=== PATIENT | male | born 1965 | race Caucasian/White ===

== ENCOUNTER 2017-04-09 09:11 | Inpatient (IN) | payer MEDICAID ==
[2017-04-09] VITALS (10 sets, daily range): BP systolic 132–170; BP diastolic 70–98; PULSE 70–100; RESP 16–20; TEMP 97.6–97.8; O2SAT 98–99
[2017-04-09] MEDS ORDERED: NITROGLYCERIN 0.4 MG SL 25 TABS/BTL SL ONE (09:45)
[2017-04-09] MEDS ORDERED: SODIUM CHLORIDE 0.9% FLUSH 10 ML FLUSH IVF PRN (09:45)
--- NOTE | 2017-04-09 09:47 | PD ---
HPI Chief Complaint: Cardiac Complaint Time Seen by Provider: :31 Travel History International Travel<30 days: No Contact w/Intl Traveler<30days: No Traveled to known affect area: No History of Present Illness HPI 51-year-old male notes 1 month history of chest pressure that goes up into his throat when he moves. He states that he went to Dr. nazario's office and they advised him to come here for testing and admission. He states he was referred there by his primary care physician. He states that sometimes he also gets short of breath with exertion. He states no other concurrent complaints. He denies specific other modifying factors. He was given aspirin in the office prior to arrival. He is currently on no medications given his cholesterol is under control without it and is not needing other medications he states. PFSH Past Medical History Narrative Medical Mild chronic kidney disease, dyslipidemia, renal cancer status post nephrectomy Cancer: Yes Immunizations Current: Yes Past Surgical History Cholecystectomy: Yes Other Surgery: Yes (LEFT KIDNEY REMOVAL, FEMUR, HERNIA) Social History Alcohol Use: No Tobacco Use: No Substance Use: No Allergies-Medications (Allergen,Severity, Reaction): Coded Allergies: No Known Allergies (Unverified , 04/09/17) Reported Meds & Prescriptions Reported Meds & Active Scripts Active No Active Prescriptions or Reported Medications Review of Systems Except as stated in HPI: all other systems reviewed are Neg Physical Exam Narrative GENERAL: Well-nourished, well-developed patient. SKIN: Warm and dry. HEAD: Normocephalic and atraumatic. EYES: No injection or drainage. ENT: No nasal drainage noted. NECK: Supple, trachea midline. CARDIOVASCULAR: Regular rate and rhythm RESPIRATORY: Breath sounds equal bilaterally. No accessory muscle use. GASTROINTESTINAL: Abdomen soft, non-tender, nondistended. EXTREMITIES: No edema. NEUROLOGICAL: Awake and alert. Motor and sensory grossly within normal limits. Normal speech. Data Data Last Documented VS Vital Signs Date Time Temp Pulse Resp B/P Pulse Ox O2 Delivery O2 Flow Rate FiO2 04/09/17 09:35 99 Room Air 04/09/17 09:13 97.8 75 20 170/95 Orders Electrocardiogram (04/09/17 09:31) Ckmb (Isoenzyme) Profile (04/09/17 09:31) Complete Blood Count With Diff (04/09/17 09:31) Comprehensive Metabolic Panel (04/09/17 09:31) Magnesium (Mg) (04/09/17 09:31) Prothrombin Time / Inr (Pt) (04/09/17 09:31) Act Partial Throm Time (Ptt) (04/09/17 09:31) Troponin I (04/09/17 09:31) Chest, Single Ap (04/09/17 09:31) Ecg Monitoring (04/09/17 09:31) Bilateral Bp Monitoring (04/09/17 09:31) Iv Access Insert/Monitor (04/09/17 09:31) Oximetry (04/09/17 09:31) Sodium Chloride 0.9% Flush (Ns Flush) (04/09/17 09:45) Nitroglycerin Sl (Nitrostat Sl) (04/09/17 09:45) CKMB (04/09/17 09:45) CKMB% (04/09/17 09:45) Consult Cardiology (04/09/17 ) Heparin Infusion CATHY.Q1H (04/09/17 10:50) Heparin Inj (Heparin Inj) (04/09/17 11:00) Heparin Inj (Heparin Inj) (04/09/17 17:00) Heparin Inj (Heparin Inj) (04/09/17 17:00) Heparin-D5w Inj (Heparin-D5w Inj) (04/09/17 11:00) Cbc No Diff, Includes Plts (04/12/17 06:00) Act Partial Throm Time (Ptt) (04/09/17 17:50) Occult Blood (Hemoccult) Stool (04/09/17 10:50) Nitroglycerin 2% Oint (Nitroglycerin 2% (04/09/17 11:00) Diet Npo (04/09/17 Lunch) (Hub Use Only)Inp Phy Cons/Ref (04/09/17 ) Admit Order (Ed Use Only) (04/09/17 11:35) Labs Laboratory Tests Test 04/09/17 09:45 White Blood Count 5.7 TH/MM3 Red Blood Count 4.51 MIL/MM3 Hemoglobin 12.9 GM/DL Hematocrit 38.0 % Mean Corpuscular Volume 84.2 FL Mean Corpuscular Hemoglobin 28.5 PG Mean Corpuscular Hemoglobin 33.9 % Concent Red Cell Distribution Width 16.3 % Platelet Count 191 TH/MM3 Mean Platelet Volume 7.7 FL Neutrophils (%) (Auto) 54.1 % Lymphocytes (%) (Auto) 34.9 % Monocytes (%) (Auto) 8.6 % Eosinophils (%) (Auto) 1.4 % Basophils (%) (Auto) 1.0 % Neutrophils # (Auto) 3.1 TH/MM3 Lymphocytes # (Auto) 2.0 TH/MM3 Monocytes # (Auto) 0.5 TH/MM3 Eosinophils # (Auto) 0.1 TH/MM3 Basophils # (Auto) 0.1 TH/MM3 CBC Comment DIFF FINAL Differential Comment Prothrombin Time 10.3 SEC Prothromb Time International 0.9 RATIO Ratio Activated Partial 27.1 SEC Thromboplast Time Sodium Level 137 MEQ/L Potassium Level 4.1 MEQ/L Chloride Level 103 MEQ/L Carbon Dioxide Level 27.5 MEQ/L Anion Gap 7 MEQ/L Blood Urea Nitrogen 16 MG/DL Creatinine 1.33 MG/DL Estimat Glomerular Filtration 57 ML/MIN Rate Random Glucose 126 MG/DL Calcium Level 8.9 MG/DL Magnesium Level 2.2 MG/DL Total Bilirubin 0.7 MG/DL Aspartate Amino Transf 18 U/L (AST/SGOT) Alanine Aminotransferase 36 U/L (ALT/SGPT) Alkaline Phosphatase 53 U/L Total Creatine Kinase 111 U/L Creatine Kinase MB 5.9 NG/ML Troponin I LESS THAN 0.02 NG/ML Total Protein 7.7 GM/DL Albumin 4.0 GM/DL MDM Medical Decision Making Medical Screen Exam Complete: Yes Emergency Medical Condition: Yes Medical Record Reviewed: Yes (past history confirmed) Interpretation(s) EKG shows NSR, no ST elevation or depression, and no arrhythmias. No significant T-wave inversions. CBC & BMP Diagram 04/09/17 09:45 Last 24 hours Impressions Chest X-Ray 04/09/17 0931 Signed Impressions: Service Date/Time: Sunday, April 09, 2017 10:06 - CONCLUSION: No acute disease. Dima Rutherford MD FACR Differential Diagnosis angina, musculoskeletal, anemia, gastritis Narrative Course Will check blood work, chest x-ray, EKG and dose with nitroglycerin. Had aspirin prior to arrival Patient is feeling better after nitroglycerin with improvement and near resolution of pain but does note mild head pressure. Agrees to admission when updated Physician Communication Physician Communication Dr. nazario states to keep nothing by mouth, heparinize, nitroglycerin paste and discuss with his colleague Dr. Yoel shafer states to to keep nothing by mouth and will see patient Dr. Diaz agrees to admission Diagnosis Primary Impression: Unstable angina Admitting Information Admitting Physician Requests: Admit Scripts No Active Prescriptions or Reported Meds Tracy Mukherjee MD Apr 09, 2017 09:47
[2017-04-09 10:09] LABS: APTT (PATIENT) 27.1 SEC (24.3-30.1); AUTOMATED NEUTROPHIL # 3.1 TH/MM3 (1.8-7.7); BASOPHIL # 0.1 TH/MM3 (0-0.2); EOSINOPHIL # 0.1 TH/MM3 (0-0.4); EOSINOPHIL % 1.4 % (0.0-4.0); HEMO FLAGS DIFF FINAL; INTERNATIONAL NORMALIZED RATIO 0.9 RATIO; LYMPH % 34.9 % (9.0-44.0); MEAN CELL VOLUME 84.2 FL (80.0-100.0); MEAN CORPUSCULAR HEMOGLOBIN 28.5 PG (27.0-34.0); MEAN CORPUSCULAR HGB CONC 33.9 % (32.0-36.0); MONO % 8.6 % (0.0-8.0); NEUT % 54.1 % (16.0-70.0); PLATELET COUNT 191 TH/MM3 (150-450); PROTHROMBIN TIME - PATIENT 10.3 SEC (9.8-11.6); RED BLOOD COUNT 4.51 MIL/MM3 (4.50-5.90); RED CELL DISTRIBUTION WIDTH 16.3 % (11.6-17.2); WHITE BLOOD COUNT 5.7 TH/MM3 (4.0-11.0)
[2017-04-09 10:18] LABS: ALT (GPT) 36 U/L (12-78); ANION GAP 7 MEQ/L (5-15); AST (GOT) 18 U/L (15-37); BICARBONATE 27.5 MEQ/L (21.0-32.0); BLOOD UREA NITROGEN 16 MG/DL (7-18); CHLORIDE 103 MEQ/L (98-107); GLOMERULAR FILTRATION RATE 57 ML/MIN (>89); MAGNESIUM 2.2 MG/DL (1.5-2.5); POTASSIUM 4.1 MEQ/L (3.5-5.1); SODIUM (NA) 137 MEQ/L (136-145)
[2017-04-09 10:21] LABS: ALKALINE PHOSPHATASE 53 U/L (45-117); CREATINE KINASE 111 U/L (39-308); TOTAL BILIRUBIN ADULT 0.7 MG/DL (0.2-1.0)
--- NOTE | 2017-04-09 10:23 | RADRPT ---
EXAM DATE/TIME: 04/09/2017 10:06 [facility] COMPARISON: No previous studies available for comparison. INDICATIONS : Patient was sent by his personal care physician. He has been short of breath for two weeks. MEDICAL HISTORY : Hiatal hernia. SURGICAL HISTORY : None. ENCOUNTER: Initial ACUITY: 2 weeks PAIN SCORE: 0/10 LOCATION: Bilateral chest FINDINGS: A single view of the chest demonstrates the lungs to be symmetrically aerated without evidence of mas s, infiltrate or effusion. The cardiomediastinal contours are unremarkable. Osseous structures are intact. CONCLUSION: No acute disease. Dima Rutherford MD FACR on April 09, 2017 at 10:21 Board Certified Radiologist. This report was verified electronically.
[2017-04-09 10:33] LABS: CKMB 5.9 NG/ML (0.5-3.6)
[2017-04-09] MEDS ORDERED: NITROGLYCERIN 2% OINT 1 GM PACKET TOP ONE (11:00)
[2017-04-09] MEDS ORDERED: HEPARIN-D5W INJ 250 ML IV SCH (11:00)
[2017-04-09] MEDS ORDERED: HEPARIN SODIUM - IV 10,000 UNITS/10 ML VIAL IV ONE (11:00)
[2017-04-09] MEDS ORDERED: NALOXONE HCL 0.4 MG/ML AMP IV PRN (12:00)
[2017-04-09] MEDS ORDERED: SODIUM CHLORIDE 0.9% FLUSH 10 ML FLUSH IV FLUSH PRN (12:00)
[2017-04-09] MEDS ORDERED: ONDANSETRON HCL 4 MG/2 ML VIAL IVP PRN (12:00)
[2017-04-09] MEDS ORDERED: MORPHINE SULFATE 4 MG/ML INJ IV PRN ×2 (12:00)
[2017-04-09] MEDS ORDERED: SENNOSIDES 8.6 MG TAB PO PRN (12:00)
[2017-04-09] MEDS ORDERED: LACTULOSE SYRUP 20 GM/30 ML CUP PO PRN (12:00)
[2017-04-09] MEDS ORDERED: BISACODYL 10 MG SUPP RECTAL PRN (12:00)
[2017-04-09] MEDS ORDERED: MAGNESIUM HYDROXIDE SUSP 30 ML CUP PO PRN (12:00)
[2017-04-09] MEDS ORDERED: DIAZEPAM 10 MG TAB PO SCH (12:30)
[2017-04-09] MEDS ORDERED: diphenhydrAMINE HCL 50 MG CAP PO SCH (12:30)
[2017-04-09] MEDS ORDERED: ASPIRIN 325 MG TAB PO SCH (12:30)
--- NOTE | 2017-04-09 12:30 | MB ---
cc: CHALINO FUNEZ M.D. DATE OF CONSULTATION: 04/09/2017 DATE OF : 1965 REASON FOR CONSULTATION Unstable angina. HISTORY OF PRESENT ILLNESS The patient is a 51-year-old white male with a history of dyslipidemia, mild chronic renal insufficiency, renal cancer status post left nephrectomy about 2 years ago, who was sent in from Dr. Forest Smith's office today due to symptoms most suggestive of unstable angina. For the past several weeks the patient has had intermittent episodes of substernal chest heaviness associated with shortness of breath. Most of the symptoms have occurred with minimal to mild exertion. In this time span he has also noted considerable dyspnea on exertion and worsening fatigue. Occasionally he experiences lightheadedness without syncope or near-syncope. He denies palpitations, pedal edema, paroxysmal nocturnal dyspnea. This morning he had yet another episode of chest pressure. When he came to the emergency room he also began to have a feeling of throat tightness. Some of his chest discomforts in the past few weeks have lasted most of the day. He denies pleurisy, fevers, cough, hemoptysis. PAST MEDICAL HISTORY As above. PAST SURGICAL HISTORY 1. Cholecystectomy. 2. Left nephrectomy. MEDICATIONS His cardiac medications at home are none. ALLERGIES No known drug allergies. FAMILY HISTORY There is no significant family history of early myocardial infarction. SOCIAL HISTORY The patient denies alcohol or tobacco abuse. REVIEW OF SYSTEMS As in the history of present illness, otherwise negative or noncontributory. He also denies abdominal pain, melena, bright red blood per rectum, wheezing, cough. At times he does experience heartburn for which he takes cider vinegar with relief of his symptoms. PHYSICAL EXAMINATION VITAL SIGNS: Blood pressure 170/95 with a pulse of 75, respirations 20. GENERAL: In general he is a well-developed, well-nourished white male in no acute distress. HEENT/NECK: Jugular venous pressure is normal. Carotid pulses are 2+ bilaterally and without bruits. CHEST: Examination of the chest reveals clear lung stroud. CARDIAC: On cardiac examination he has a regular rhythm and rate without S3, S4, or murmur. ABDOMEN: On abdominal examination he has a soft, nontender abdomen. Bowel sounds are present. There is no definite hepatosplenomegaly. EXTREMITIES: Examination of the extremities reveals no clubbing, cyanosis or edema. Peripheral pulses are normal throughout. LABORATORY Laboratory data includes WBC 5.7, hemoglobin 12.9, platelets 191, potassium 4.1, BUN 16, creatinine 1.33, troponin less than 0.02, CK 111, CK-MB 5.9. EKG EKG is pending. IMPRESSION Symptoms most suggestive of unstable angina in this 51-year-old white male with a history of renal cancer status post left nephrectomy 2 years ago, history of dyslipidemia (low HDL). At this time he is chest discomfort free. Indeed he has had at least two episodes of angina-like chest discomfort at rest in the past couple days. EKG is currently pending. His troponin level is negative. The CK-MB percentage is slightly elevated. There is no definite evidence for congestive heart failure. In light of the instability of his symptoms he has been recommended cardiac catheterization with possible percutaneous coronary intervention. The nature of these procedures and potential risks including but not limited to , myocardial infarction, stroke, arrhythmia, bleeding, infection and renal failure have been outlined to the patient. He agrees to proceed. RECOMMENDATIONS Cardiac catheterization today. MD DONNA Jaramillo/MOMO /12:11 PM /12:17 PM [facility]
[2017-04-09] MEDS: SODIUM CHLOR 0.9% 1000 ML INJ 1,000 ML IV SCH ×3 (13:22→17:30)
--- NOTE | 2017-04-09 13:22 | HHI.HP ---
HPI Service [facility] Primary Care Physician Alberto Daniels MD Admission Diagnosis angina Diagnoses: Chief Complaint: Chest pain Travel History International Travel<30 Days: No Contact w/Intl Traveler <30 Da: No Traveled to Known Affected Are: No History of Present Illness Written by Ehsan Walker, acting as scribe for Dr. Diaz on 04/09/17 at 13:02. Patient is a 51-year-old male with primary medical history of dyslipidemia, renal cell cancer who came into the hospital as recommended by Dr. Smith, officer lieutenant for further evaluation of his chest pain. Patient states that he's been having chest pain for 6 weeks or so now. He described chest pain is associated with shortness of breath, he feels that he cannot get enough air, he also feels that his heart rate is occasionally elevated due to disc, feels weak, feels fatigued. 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 Patient also states that the other night, he was chest Kennedy in bed but he feels that there is a pressure sitting on his chest, and he felt bad, states he is unable to describe the feeling that he gets the pressure. Also mentioned that he cannot sustain sexual activity because he gets out of breath and energy. He was seen by his primary care physician and was recommended to see a officer lieutenant, Dr. Smith. When he went to his office they didn't EKG on him and as he gets evaluated he was recommended to go to the hospital. Patient also states that for about 4-5 months he has been on and off having cold symptoms that he can get rid of. His primary care physician has been given him antibiotics but he feels that he is not getting rid of it. Patient states he was given nitroglycerin, he feels he has a full head but states that all his symptoms of chest pain has been relieved, and he is doing a lot better now. On exam, denies pain and discomfort. Denies SOB/ dyspnea. Denies chest pain, palpitations, dizziness. Denies fevers, chills, n/v/d. Denies dysuria. Review of Systems Except as stated in HPI: all other systems reviewed are Neg Past Family Social History Past Medical History Dyslipidemia Renal cell cancer Femur fracture Past Surgical History Left nephrectomy secondary to renal cell cancer Cholecystectomy Femur surgery Reported Medications Reported Meds & Active Scripts Active No Active Prescriptions or Reported Medications Allergies: Coded Allergies: No Known Allergies (Unverified , 04/09/17) Active Ordered Medications Current Medications Medications (Trade) Dose Ordered Sig/Kati Route Start Time Stop Time Status Last Admin (Heparin Inj) 5,000 units UNSCH PRN IV 04/09/17 17:00 Heparin Sodium (Porcine) 2500 units 2,500 units UNSCH PRN IV 04/09/17 17:00 (Heparin-D5W Inj) 250 ml @ 0 mls/hr TITRATE IV 04/09/17 11:00 04/09/17 11:25 (NS Flush) 2 ml UNSCH PRN IV FLUSH 04/09/17 12:00 (NS Flush) 2 ml BID IV FLUSH 04/09/17 21:00 (Zofran Inj) 4 mg Q6H PRN IVP 04/09/17 12:00 (Morphine Inj) 2 mg Q3H PRN IV 04/09/17 12:00 (Morphine Inj) 4 mg Q3H PRN IV 04/09/17 12:00 (Narcan Inj) 0.4 mg UNSCH PRN IV 04/09/17 12:00 (Yanique-Colace) 1 tab BID PO 04/09/17 21:00 (Milk Of Magnesia Liq) 30 ml Q12H PRN PO 04/09/17 12:00 (Senokot) 17.2 mg Q12H PRN PO 04/09/17 12:00 (Dulcolax Supp) 10 mg DAILY PRN RECTAL 04/09/17 12:00 Lactulose 30 ml 30 ml DAILY PRN PO 04/09/17 12:00 (NS 1000 ml Inj) 1,000 ml @ 100 mls/hr Q10H IV 04/09/17 12:16 Family History Mother has COPD Father has stent placements, unable to remember a father had CABG, but sure that 2 of his uncles have CABG Social History Rare alcohol use Denies tobacco use Denies illicit drug use Physical Exam Vital Signs Vital Signs Date Time Temp Pulse Resp B/P Pulse Ox O2 Delivery O2 Flow Rate FiO2 04/09/17 09:35 99 Room Air 04/09/17 09:31 Room Air 04/09/17 09:13 97.8 75 20 170/95 98 Physical Exam GENERAL: This is a well-nourished, well-developed patient, in no apparent distress. SKIN: No rashes, ecchymoses or lesions. Cool and dry. HEAD: Normocephalic. No temporal or scalp tenderness. EYES: Pupils equal round and reactive. Extraocular motions intact. No scleral icterus. No injection or drainage. ENT: Nose without bleeding. Throat without erythema. Uvula midline. Airway patent. NECK: Trachea midline. No JVD or lymphadenopathy. Supple, nontender, no meningeal signs. CARDIOVASCULAR: Regular rate and rhythm without murmurs, gallops, or rubs. RESPIRATORY: Clear to auscultation. Breath sounds equal bilaterally. No wheezes , rales, or rhonchi. GASTROINTESTINAL: Abdomen soft, non-tender, protuberant. No guarding. Bowel sounds active 4. MUSCULOSKELETAL: Extremities without clubbing, cyanosis, or edema. No joint tenderness, effusion, or edema noted. NEUROLOGICAL: Awake and alert. Oriented to self, person, place. Motor and sensory grossly within normal limits. Normal speech. Laboratory Laboratory Tests Test 04/09/17 09:45 White Blood Count 5.7 Red Blood Count 4.51 Hemoglobin 12.9 Hematocrit 38.0 Mean Corpuscular Volume 84.2 Mean Corpuscular Hemoglobin 28.5 Mean Corpuscular Hemoglobin 33.9 Concent Red Cell Distribution Width 16.3 Platelet Count 191 Mean Platelet Volume 7.7 Neutrophils (%) (Auto) 54.1 Lymphocytes (%) (Auto) 34.9 Monocytes (%) (Auto) 8.6 Eosinophils (%) (Auto) 1.4 Basophils (%) (Auto) 1.0 Neutrophils # (Auto) 3.1 Lymphocytes # (Auto) 2.0 Monocytes # (Auto) 0.5 Eosinophils # (Auto) 0.1 Basophils # (Auto) 0.1 CBC Comment DIFF FINAL Differential Comment Prothrombin Time 10.3 Prothromb Time International 0.9 Ratio Activated Partial 27.1 Thromboplast Time Sodium Level 137 Potassium Level 4.1 Chloride Level 103 Carbon Dioxide Level 27.5 Anion Gap 7 Blood Urea Nitrogen 16 Creatinine 1.33 Estimat Glomerular Filtration 57 Rate Random Glucose 126 Calcium Level 8.9 Magnesium Level 2.2 Total Bilirubin 0.7 Aspartate Amino Transf 18 (AST/SGOT) Alanine Aminotransferase 36 (ALT/SGPT) Alkaline Phosphatase 53 Total Creatine Kinase 111 Creatine Kinase MB 5.9 Troponin I LESS THAN 0.02 Total Protein 7.7 Albumin 4.0 Result Diagram: 04/09/1794404/09/17944 Imaging Last Impressions Chest X-Ray 04/09/17930 Signed Impressions: Service Date/Time: Friday, April 09, 2017 10:06 - CONCLUSION: No acute disease. Dima Rutherford MD FACR Assessment and Plan Problem List: (1) Unstable angina ICD Code: I20.0 Status: Acute Assessment and Plan Patient is a 51-year-old male with primary medical history of dyslipidemia, renal cell cancer who came into the hospital as recommended by Dr. Smith, officer lieutenant for further evaluation of his chest pain. Unstable Angina R/O ACS - Chest x-ray showed no acute disease - Troponins negative 0.02 - CK-MB slightly elevated, 5.9 - Cardiology consulted and recommends cardiac catheter with possible percutaneous coronary intervention. Patient was seen by Dr. Diallo. - Discuss extensively plans for cardiac cath, risks, options with patient. Verbalized understanding. Hopeful that he would just get stent placements. Appreciative of care. - Serial EKG, serial troponin follow-up results - Started on heparin drip, monitor PTT - Denies chest pressure, chest pain after nitroglycerin. Nitroglycerin when necessary. Acute on chronic kidney disease - Patient status post left nephrectomy secondary to renal cell carcinoma - Baseline with chronic kidney insufficiency - Monitor creatinine - Avoid nephrotoxins DVT prop heparin drip This note was transcribed by mirella [Ehsan Walker]. I, Dr. Kenton Diaz personally performed the history, physical exam, and medical decision making; and confirmed the accuracy of the information in the transcribed note. Authenticated by Dr. Kenton Diaz on 04/09/17 at 15:43. Code Status Full code Discussed Condition With Patient, nursing, ED attending Physician Certification 2 Midnight Certification Type: Admission for Inpatient Services Order for Inpatient Services The services are ordered in accordance with Medicare regulations or non- Medicare payer requirements, as applicable. In the case of services not specified as inpatient-only, they are appropriately provided as inpatient services in accordance with the 2-midnight benchmark. Estimated LOS (days): 2 days is the estimated time the patient will need to remain in the hospital, assuming treatment plan goals are met and no additional complications. Post-Hospital Plan: Not yet determined Ehsan Willingham Apr 09, 2017 13:22 Kenton Diaz MD Apr 09, 2017 15:44
[2017-04-09] MEDS ORDERED: HEPARIN-NS/PF INJ 500 ML ONE (16:02)
[2017-04-09] MEDS ORDERED: VERAPAMIL HCL 5 MG/2 ML VIAL ONE (16:03)
[2017-04-09] MEDS ORDERED: IOHEXOL 350 MG/ML 100 ML BTL (for Cath Lab) OTHER ONE (16:03)
[2017-04-09] MEDS ORDERED: IOHEXOL 350 MG/ML 50 ML BTL (for Cath Lab) OTHER ONE (16:03)
[2017-04-09] MEDS ORDERED: MIDAZOLAM HCL 2 MG/2 ML VIAL ONE ×3 (16:03→17:00)
[2017-04-09] MEDS ORDERED: HEPARIN SODIUM - IV 10,000 UNITS/10 ML VIAL ONE (16:03)
[2017-04-09] MEDS ORDERED: NITROGLYCERIN INJ 5 ML ONE (16:03)
[2017-04-09] MEDS ORDERED: TIROFIBAN INFUSION INJ 250 ML IV ONE ×2 (16:44→16:57)
[2017-04-09] MEDS ORDERED: HEPARIN SODIUM - IV 10,000 UNITS/10 ML VIAL IV PRN ×2 (17:00)
[2017-04-09] MEDS ORDERED: TICAGRELOR 90 MG TAB PO ONE (17:04)
[2017-04-09] MEDS ORDERED: NITROGLYCERIN 2% OINT 1 GM PACKET ONE (17:21)
[2017-04-09] MEDS ORDERED: TIROFIBAN INFUSION INJ 250 ML IV SCH (17:30)
[2017-04-09] MEDS ORDERED: TEMAZEPAM 15 MG CAP PO PRN (17:30)
[2017-04-09] MEDS ORDERED: MISC INFORMATION XX ONE (17:30)
[2017-04-09] MEDS ORDERED: SODIUM CHLORIDE 0.9% FLUSH 5 ML FLUSH IVF PRN (17:30)
--- NOTE | 2017-04-09 17:40 | CATHPROC ---
EGEN HIS Report Study Information Study Number Admission Scheduled Start Study Start [id number] Apr 09 2017 11:36AM 04/09/2017 Apr 09 2017 3:57PM [place] Service Cardiac Catheterization Admit Source Facility Department Emergency department [facility] - Tailer Off Physician and Clinical Staff Initial Mj Van Career Transition Specialist Kendal Naik,RN Other cathlab, cathlab Recorder Moshe Baez,SERVICE GIRL(BS) Recorder Nadja Hutton,TRAILER STEERER TECH2 Scrub Jaymie Florez,RT(R) (BS) Procedures Performed Procedure Location (Site) Vessel Name Coronary Angiograms LCA Left Coronary Coronary Angiograms RCA Right Coronary Drug Eluting Inflatio CIRC Mid CIRC L Heart Cath LV Gram-hand inj. LV LV Ventricle PTCA CIRC Mid CIRC Wire insertion Radial (right) Radial Art. Equipment Time Softball Winder Description Size Mfg Part Number Used/Scraped [id number] 16:44 [employer] WIRE, ASAHI PROWATER 180CM 180CM Used *[id number] TRANSDUCER, TRUWAVE [id number] 15:58 LAW MCCLURE * Used W/STOCKCOCK *[id number] *[id number] [id number] *[id number] *[id number] 15:58 MALLINCKRODT SYRINGE, ANGIOMAT 150ML 150ML *[id number] Used [facility] [employer] CONCEPT DRAPE, RADIAL FEMORAL FULL 15:58 * [id number] *[id number] Used DEVELOPMENT BODY [id number] 15:58 [employer] INDUSTRIES PACK, CCL CUSTOM * Used *[id number] 15:58 [employer] SUPPORT, ARTERIAL ADULT 02260 Used [id number] 15:58 [employer] PACER PEN, SKIN DUAL W/ RULER * Used *[id number] BALLOON, 2.75 X 15MM [id number] 16:52 MEDTRONIC 15MM Used EUPHORA *[id number] STENT, 2.75 18 RESOLUTE [id number] 16:56 MEDTRONIC 2.75 18 Used INTEGRITY RX *[id number] [id number] 16:43 iMOSPHERE 30 KRISTI INDEFLATOR Used *[id number] BAND, RADIAL COMPRESSION TR [id number] 17:06 iMOSPHERE 29CM Used LARGE 29 *[id number] SHEATH, FR6 RADIAL PRELUDE 15:58 [facility] [employer] FR 6 [id number] Used EASE 11CM [id number] 15:58 [employer] MEDICAL WIRE, EXCHANGE 260CM 3MMJ 260CM Used *[id number] 15:58 NAMIC MANIFOLD, 4 PORT * Used *[id number] 15:58 [employer]COMED OMNIPAQUE, 350 MG, 150ML 150ML [id number] Used [id number] 15:58 [employer],WARM AIR CCL * Used *[id number] CATHETER, FR5 OPTITORQUE [id number] 16:06 [employer] FR 5 Used RADIAL TIG 4.0 *[id number] Equipment Model, Serial, Lot Number and Expiration Data Description Model Number Serial Number Lot Number Expiration Date STENT, 2.75 18 RESOLUTE [id number] 10-02-2018 INTEGRITY RX History: Allergies Allergy Reaction No Known Allergies History: Risk Factors Family History of Hypertension Dyslipidemia Previous [place] Previous Heart Failure Premature CAD No No No No No Prior Valve Prior PCI Prior CABG Surgery No No No Cerebrovascular Peripheral Artery Chronic Lung On Dialysis Diabetes Disease Disease Disease No No No No No History: Symptoms/Diagnosis Selection Items Chest pain History: Stress Tests Stress or Imaging Studies Performed No History: Other Current Smoker No Labs Hgb (g/dl) Hct (%) WBC (l/cumm) Platelets (thousands) 11.60-17.00 35.00-51.00 4.00-11.00 150.00-450.00 12.9 38 5.7 191 Glucose (mg/dl) BUN (mg/dl) Creatinine (mg/dl) BUN:Creatinine (1:x) 74.00-106.00 7.00-18.00 0.50-1.30 10.00-20.00 126 16 1.3 12.3 Na (meq/l) K (meq/l) 136.00-145.00 3.50-5.10 137 4.1 INR (PTT:PT) 0.90-1.10 0.9 Troponin I (ng/ml) CPK (u/l) CPK-MB (ng/ML) 0.02-0.05 26.00-308.00 0.50-3.60 0.02 11 9.6 Medication Medication Total Dose (Bolus/Oral) Medication Total Dosage/Unit 1% XYLOCAINE 3 mL ANGIOMAX BOLUS 58 mL BRILINTA 180 mg FENTANYL 50 mcg HEPARIN 2000 units NITRO OINTMENT 1 inches RADIAL COCKTAIL 5 mL (Bolus) VERSED 6 mg Medications (Bolus/Oral) Medication Time Given Dosage/Unit Administered By Reason VERSED 04/09/2017 4:28:20 PM 2 mg Adamy, Kendal 2 mg VERSED given in lab by Kendal Naik RN in Left Antecubital via Peripheral IV. Ordered by Mj Orona. 1% XYLOCAINE 04/09/2017 4:30:42 PM 3 mL Mj Diallo 3 mL 1% XYLOCAINE given in lab by Mj Diallo in Right Radial via Subcutaneous. Ntg 200mcg Verapamil 2.5mg Heparin RADIAL COCKTAIL 04/09/2017 4:34:00 PM 5 mL (Bolus) Mj Diallo 2500U 5 mL (Bolus) RADIAL COCKTAIL given in lab by Mj Diallo in Right Radial via Radial. Using [Solution Name]. Reason: Ntg 200mcg Verapamil 2.5mg Heparin 2500U. VERSED 04/09/2017 4:36:49 PM 1 mg Adamy, Kendal 1 mg VERSED given in lab by Kendal Naik RN in Left Antecubital via Peripheral IV. Ordered by Mj Orona. ANGIOMAX BOLUS 04/09/2017 4:47:18 PM 58 mL Wendy Naikfer 58 mL ANGIOMAX BOLUS given in lab by Kendal Naik RN in Right Antecubital via Peripheral IV. Orde red by Mj Diallo. HEPARIN 04/09/2017 4:47:47 PM 2000 units Kendal Naik 2000 units HEPARIN given in lab by Kendal Naik RN in Right Antecubital via Peripheral IV. Ordere d by Mj Diallo. VERSED 04/09/2017 4:53:03 PM 1 mg Adamy, Kendal 1 mg VERSED given in lab by Kendal Naik, RUBIN in Left Antecubital via Peripheral IV. Ordered by Mj Orona. VERSED 04/09/2017 5:00:48 PM 2 mg Adamy, Kendal 2 mg VERSED given in lab by Kendal Naik, RUBIN in Left Antecubital via Peripheral IV. Ordered by Mj Orona. BRILINTA 04/09/2017 5:07:21 PM 180 mg Sergioy, Kendal 180 mg BRILINTA given in lab by Kendal Naik, RN via Oral. Ordered by Mj Diallo. FENTANYL 04/09/2017 5:16:16 PM 50 mcg Kendal Naik 50 mcg FENTANYL given in lab by Kendal Naik, RN in Right Antecubital via Peripheral IV. Ordered Mj Tineo. NITRO OINTMENT 04/09/2017 5:23:25 PM 1 inches Kendal Naik 1 inches NITRO OINTMENT given in lab by Kendal Naik, RUBIN in Right Arm via Peripheral IV. Ordered Mj Tineo. right arm Medication (Drip) Medication Time Given Dosage/Unit Concentration/Unit Diluent (ml) Solution AGGRASTAT DRIP 04/09/2017 4:56:41 PM 0.15 mcg/kg/min 12.5 mg 250 NaCl .9 0.15 mcg/kg/min AGGRASTAT DRIP given in lab by Kendal Naik, RUBIN in Right Antecubital via Periphera l IV. Pump/Drip Flow = 21.6 ml/hr using NaCl .9 with a concentration of 12.5 mg in 250 ml. Ordered by Mj Diallo. IV Solutions 04/09/2017 4:03:39 PM 0 mL (IV) 500 NaCl .9 Patient arrived on IV Solutions in Left Antecubital via Peripheral IV. Pump/Drip Flow = 20 ml/hr usin g NaCl .9. Initial Case Assessment Cardiovascular HR Rhythm NIBP Chest Pain 70 SINUS 126/67 0 Edema Present Skin color Skin None Normal Warm Dry Circulatory - Right Pulses Dorsalis Pedis Femoral Radial 2 2 2 Scale (0,1,2,3,4,d) Scale (0,1,2,3,4,d) Neurological State Oriented to time-place- Alert Moves all extremities person Respiration - General Respiration Rate SpO2 (%) (B/min) 15 99 Final Case Assessment Cardiovascular HR Rhythm NIBP Chest Pain 57 SINUS 121/65 0 Edema Present Skin color Skin None Normal Warm Dry Circulatory - Right Pulses Dorsalis Pedis Femoral Radial 2 2 2 Scale (0,1,2,3,4,d) Scale (0,1,2,3,4,d) Neurological State Oriented to time-place- Alert Moves all extremities person Respiration - General Respiration Rate SpO2 (%) (B/min) 14 96 Chronological Log Time Study Chronological Log 16:03:30 Patient arrived via Bed. HEPARIN DRIP DCed PER MD UPON GUM COOK. 16:03:30 Patient Name, D.O.B, / Armband Verified By R.N. 16:03:31 Consent signed by the physician and the patient and verified by the Tailer Off staff. 16:03:31 Pre-op and post- op instructions given; patient acknowledges understanding of instructions. 16:03:32 Verbal Stimulation=2 Physical Stimulation=2 Airway=2 Respiration=2 TOTAL=8. (0=absent, 1=li mited, 2=present) 16:03:33 Presedation assessment performed by Tailer Off RN. 16:03:34 Allens test performed on the right radial and ulnar artery. 16:03:35 Immediate Presedation assesment performed by physician. 16:03:35 Patient has been NPO for More than 6Hrs. 16:03:36 Skin Breakdown- NONE PER PATIENT 16:03:37 Patient Warmer Placed on the Table. 16:03:38 Hafsa Prominences Protected 16:03:39 A # 20 IV was noted in the Antecubital (left). Grade = 0 16:03:39 Patient arrived on IV Solutions in Left Antecubital via Peripheral IV. Pump/Drip Flow = 20 ml/hr using NaCl .9. 16:03:40 History and physical on the chart or being dictated. Vitals capture started with the following parameters, Patient=Adult, Interval=5 min, Initial Pr ockbwf=262 mmHg, 16:08:03 Deflation Rate=5 mmHg Assessment: Initial Case, HR=70 BPM, Rhythm=SINUS, QERR=517/67 mmhg, Chest Pain=0, Edema=None, Color=Normal, Skin = Warm, Dry 16:08:05 Right Pulses: Kali Ped=2, Femoral=2, Radial=2 Neurological: State=Alert, Ox3, MEJIA Respiration: Resp=15 B/min, SpO2=99 % 16:08:36 Allens test performed on the right radial and ulnar artery. positive. 16:09:22 HR=58 bpm, BNET=014/67 mmhg, SpO2=99.0 %, Resp=14 B/min, Pain=0, Trell=10, Huang=2 16:09:42 Reference ECG taken 16:14:28 HR=65 bpm, FYNN=403/66 mmhg, SpO2=99.0 %, Resp=14 B/min, Pain=0, Trell=10, Huang=2 16:18:46 HR=72 bpm, AEPD=619/66 mmhg, SpO2=98.0 %, Resp=16 B/min, Pain=0, Trell=10, Huang=2 16:20:58 Right Radial and groin(s) prepped with 2% chlorhexidine, and with a 3 min. waiting time. 16:23:45 HR=67 bpm, SSBS=278/68 mmhg, SpO2=99.0 %, Resp=10 B/min, Pain=0, Trell=10, Huang=2 16:24:50 MD paged 16:26:45 MD arrived. 16:26:47 Contrast Scanned 16:26:48 Immediate Presedation assesment performed by physician. 16:28:20 2 mg VERSED given in lab by Kendal Naik RN in Left Antecubital via Peripheral IV. Orde red by Mj Diallo. 16:28:48 HR=71 bpm, PJKZ=098/68 mmhg, SpO2=99.0 %, Resp=11 B/min, Pain=0, Trell=10, Huang=2 16:29:07 Pressure channel 1 zeroed. Time Out. Correct patient, correct procedure,correct physician, ,power injector loaded with con trast with surgical team 16:29:40 present. Time Out Concurred by , individual staff in procedure 16:29:46 Case Start 16:29:47 Verbal Stimulation=2 Physical Stimulation=2 Airway=2 Respiration=2 TOTAL=8. (0=absent, 1=li mited, 2=present) 16:30:42 3 mL 1% XYLOCAINE given in lab by Mj Diallo in Right Radial via Subcutaneous. 16:32:27 Access site was Right Radial Artery. 16:32:36 A SHEATH, FR6 RADIAL PRELUDE EASE 11CM FR 6 was advanced into the Radial (right) using the Cutdown technique. 16:33:45 HR=71 bpm, GSJD=502/69 mmhg, SpO2=98.0 %, Resp=16 B/min, Pain=0, Trell=10, Huang=2 5 mL (Bolus) RADIAL COCKTAIL given in lab by Mj Diallo in Right Radial via Radial. Using [So lution Name]. Reason: 16:34:00 Ntg 200mcg Verapamil 2.5mg Heparin 2500U. 16:34:26 Activated Clotting Time Drawn A CATHETER, FR5 OPTITORQUE RADIAL TIG 4.0 FR 5 was advanced over a wire. OMNIPAQUE, 350 MG, 150 ML 150ML 16:34:29 was used for injections. Recorded Pressure: Ao, HR=82, Condition=Condition 1 16:36:09 (Aorta) Ao 88/66/77 16:36:14 The LCA was injected and visualized at various angles. OMNIPAQUE, 350 MG, 150ML 150ML used . 16:36:49 1 mg VERSED given in lab by Kendal Naik, RUBIN in Left Antecubital via Peripheral IV. Orde red by Mj Diallo. 16:38:42 The RCA was injected and visualized at various angles. OMNIPAQUE, 350 MG, 150ML 150ML used . 16:38:48 HR=71 bpm, CAEX=442/58 mmhg, SpO2=96.0 %, Resp=7 B/min, Pain=0, Trell=10, Huang=2 After removing the current catheter a JL 3.5 INFINITI CATHETER FR 6 was advanced over a WIRE, E XCHANGE 260CM 16:39:46 3MMJ 260CM. 16:41:25 The LCA was injected and visualized at various angles. OMNIPAQUE, 350 MG, 150ML 150ML used . After removing the current catheter a XB 3.5 GUIDE CATHETER FR 6 was advanced over a WIRE, EXCH DEAN 260CM 16:43:09 3MMJ 260CM. 16:43:45 HR=70 bpm, HXJK=110/68 mmhg, SpO2=98.0 %, Resp=19 B/min, Pain=0, Trell=10, Huang=2 16:43:49 The Recorder is being relieved by Nadja Hutton, TRAILER STEERER TECH2. 16:46:54 ACT (Normal Range 90-180) = 201 58 mL ANGIOMAX BOLUS given in lab by Kendal Naik, RUBIN in Right Antecubital via Peripheral IV . Ordered by Yoel 16:47:18 Mj. 16:47:36 A WIRE, ASAHI PROWATER 180CM 180CM was inserted via Radial (right). 2000 units HEPARIN given in lab by Kendal Naik, RN in Right Antecubital via Peripheral IV. Ordered by Yoel, 16:47:47 Mj. 16:48:46 HR=71 bpm, FTXR=561/68 mmhg, SpO2=99.0 %, Resp=11 B/min, Pain=0, Trell=10, Huang=2 A BALLOON, 2.75 X 15MM EUPHORA 15MM was inserted over WIRE, ASAHI PROWATER 180CM 180CM via the CIRC 16:52:34 Mid. 16:53:03 1 mg VERSED given in lab by Kendal Naik, RN in Left Antecubital via Peripheral IV. Orde red by Mj Diallo. A BALLOON, 2.75 X 15MM EUPHORA 15MM over a WIRE, ASAHI PROWATER 180CM 180CM in the CIRC Mid was 16:53:11 inflated using a 30 KRISTI INDEFLATOR at 12 kristi for 37 sec. 16:53:51 HR=72 bpm, NQBC=363/67 mmhg, SpO2=99.0 %, Resp=14 B/min, Pain=0, Trell=10, Huang=2 A BALLOON, 2.75 X 15MM EUPHORA 15MM over a WIRE, ASAHI PROWATER 180CM 180CM in the CIRC Mid was 16:54:15 inflated using a 30 KRISTI INDEFLATOR at 12 kristi for 30 sec. A STENT, 2.75 18 RESOLUTE INTEGRITY RX 2.75 18 was advanced through a XB 3.5 GUIDE CATHETER FR 6 over a 16:56:22 WIRE, ASAHI PROWATER 180CM 180CM. 0.15 mcg/kg/min AGGRASTAT DRIP given in lab by Kendal Naik, RN in Right Antecubital via Per ipheral IV. 16:56:41 Pump/Drip Flow = 21.6 ml/hr using NaCl .9 with a concentration of 12.5 mg in 250 ml. Ordered by Mj Diallo. A STENT, 2.75 18 RESOLUTE INTEGRITY RX 2.75 18 was deployed using a 30 KRISTI INDEFLATOR at 15 kristi ospheres 16:57:34 for 30 seconds in the CIRC Mid. 16:58:31 Delivery device removed 16:58:48 HR=70 bpm, ITHU=114/73 mmhg, SpO2=98.0 %, Resp=10 B/min, Pain=0, Trell=10, Huang=2 16:59:22 Wire removed After removing the current catheter a MPA-2 INFINITI CATHETER FR 6 was advanced over a WIRE, EX CHANGE 260CM 16:59:50 3MMJ 260CM. 17:00:48 2 mg VERSED given in lab by Kendal Naik, RUBIN in Left Antecubital via Peripheral IV. Orde red by Mj Diallo. Recorded Pressure: LV, HR=69, Condition=Condition 1 17:01:47 (Left Ventricle) LV 107/8/15 17:02:00 The LV was manually injected with 10 cc's and visualized. OMNIPAQUE, 350 MG, 150ML 150ML us ed. Recorded Pressure: LV, Ao, HR=67, Condition=Condition 1 17:02:25 (Left Ventricle) LV 119/15/17, (Aorta) Ao 118/69/87 17:03:18 Catheter was removed 17:03:51 HR=73 bpm, SKNG=519/63 mmhg, SpO2=97.0 %, Resp=13 B/min, Pain=0, Trell=10, Huang=2 17:04:16 Activated Clotting Time Drawn 17:04:27 Case End 17:04:41 Catheter(s) removed without difficulty 17:05:19 No case complications noted. 17:05:22 Cine recording checked. 17:05:24 Bedside Report will be given. 17:05:30 A Left Heart Cath was performed. 17:07:21 180 mg BRILINTA given in lab by Kendal Naik, RUBIN via Oral. Ordered by Mj Diallo. 17:08:44 HR=69 bpm, IFVH=587/80 mmhg, SpO2=98.0 %, Resp=13 B/min, Pain=0, Trell=10, Huang=2 Radial Compression Device Used. 15 mLs of air placed in BAND, RADIAL COMPRESSION TR LARGE 29 29 CM. Affected 17:08:48 hand 97 % O2 saturation. 17:09:45 ACT (Normal Range 90-180) = 252 17:13:49 HR=70 bpm, EZZZ=670/70 mmhg, SpO2=99.0 %, Resp=15 B/min, Pain=0, Trell=10, Huang=2 17:16:16 50 mcg FENTANYL given in lab by Kendal Naik, RN in Right Antecubital via Peripheral IV. Ordered by Mj Diallo. 17:18:42 HR=71 bpm, DUSW=683/77 mmhg, RuN9=405.0 %, Resp=11 B/min, Pain=0, Trell=10, Huang=2 1 inches NITRO OINTMENT given in lab by Kendal Naik, RN in Right Arm via Peripheral IV. Ord ered by Yoel 17:23:25 right arm 17:23:45 HR=67 bpm, KASM=104/70 mmhg, SpO2=99.0 %, Resp=14 B/min, Pain=0, Trell=10, Huang=2 17:27:03 NITRO PATCH REMOVED FROM LEFT UPPER CHEST 17:28:44 HR=61 bpm, TDCX=583/74 mmhg, SpO2=97.0 %, Resp=15 B/min, Pain=0, Trell=10, Huang=2 17:34:41 HR=57 bpm, NFGA=427/65 mmhg, SpO2=97 %, Resp=14 B/min, Pain=0, Trell=10, Huang=2 Assessment: Final Case, HR=57 BPM, Rhythm=SINUS, NIET=928/65 mmhg, Chest Pain=0, Edema=None, Color=Normal, Skin = Warm, Dry 17:36:13 Right Pulses: Kali Ped=2, Femoral=2, Radial=2 Neurological: State=Alert, Ox3, MEJIA Respiration: Resp=14 B/min, SpO2=96 % 17:38:08 Patient moved to stretcher 17:39:39 Vitals capture stopped. End Study - Contrast Media Used In Study Contrast Total Opened (mL) Total Used (mL) Total Wasted (mL) Omnipaque 135 135 0 End Study - Maximum Contrast Load Max Contrast Load (mL) 461.5 End Study - Radiation Exposure Fluoro Time (minutes) 9.0 End Study - Patient Disposition Complications Transferred To Interventional Outcome No Telemetry Bed successful
--- NOTE | 2017-04-09 18:00 | MA ---
cc: MOOSE SAMUEL GLENN H. M.D. DATE 04/09/17 PROCEDURE Left heart catheterization, selective coronary angiography, left ventriculography, angioplasty and stent of the mid left circumflex. PROCEDURE NOTE The patient was brought to the cardiac catheterization laboratory in a fasting state after having signed informed consent. The right radial region was prepped and draped as per policy and anesthetized with 1% lidocaine. Arterial access was obtained via the right radial artery and a 6-Thai sheath placed. Coronary arteriography was performed using a Burkburnett catheter. Additional shots were taken using a Bonny left 3.5 catheter. Left ventriculography was done using a multipurpose catheter. Percutaneous coronary intervention was done as described below. There were no apparent immediate complications. HEMODYNAMIC RESULTS Left ventricle 119 with an end-diastolic pressure of 15. Aorta 118/69 with a mean of 87. There was no significant transvalvular aortic gradient on pullback of the pigtail catheter. CORONARY ARTERIOGRAPHY The left main has somewhat eccentric, up to 30% mid to distal disease. The left anterior descending is a medium-sized vessel giving rise to a large diagonal. There is diffuse disease of the proximal LAD resulting in up to 40-50% stenosis. The diagonal also has relatively diffuse disease from its proximal to midportion resulting in up to 25% stenosis. The left circumflex is a fairly large probably codominant vessel giving rise to a relatively small first obtuse marginal which has diffuse ostial to proximal disease resulting in up to 50-60% stenosis. In the mid left circumflex there is somewhat eccentric 60-80% stenosis. The distal left circumflex overall appears to have minimal luminal irregularities. The right coronary artery is a medium-sized vessel, which gives rise to a small right ventricular branch which has 80% proximal stenosis. The proximal right coronary artery may have up to 40% stenosis. The right coronary artery does extend to the inferior wall. LEFT VENTRICULOGRAPHY Contrast injection of the left ventricle reveals no definite segmental wall motion abnormalities. Ejection fraction is estimated at 65%. PERCUTANEOUS CORONARY INTERVENTION DESCRIPTION Adequate heparin was given during the procedure to achieve an ACT of 252 seconds. Aggrastat was given as per protocol. Using a 6-Thai XB 3.5 guiding catheter the ostium of left main was re-engaged. Using a 0.014 Prowater guidewire the disease in the mid left circumflex was crossed without difficulty and the tip of the wire positioned distally. Predilation was done using a 2.75 mm Euphora balloon catheter. Stenting was done using a 2.75 x 18 mm Resolute stent which was deployed at 16 atmospheres for 30 seconds. Final angiography shows overall good results with reduction of the initial stenosis to roughly 0% residual with no definite evidence for dissection or distal embolization. The patient did develop chest pain with balloon inflation, relieved by balloon deflations, although, the chest pain he experienced was different in location and character to his presenting symptoms. CONCLUSION 1. Moderate to severe three-vessel coronary artery disease. 2. Codominant system. 3. Normal left ventricular function with estimated ejection fraction of 65%. 4. Status post angioplasty and stent of the mid left circumflex. Mj Diallo MD GHKorey/ANNALISA /5:10 PM /5:50 PM SANTHOSH
[2017-04-09] MEDS: DOCUSATE SODIUM 50 MG/SENNA 8.6 MG TAB PO SCH (20:53)
[2017-04-09] MEDS: SODIUM CHLORIDE 0.9% FLUSH 10 ML FLUSH IV FLUSH SCH (20:53)
[2017-04-10] VITALS (9 sets, daily range): BP systolic 117–139; BP diastolic 57–84; PULSE 63–78; TEMP 97.4–98.1; O2SAT 98
[2017-04-10] MEDS: SODIUM CHLOR 0.9% 1000 ML INJ 1,000 ML IV SCH (03:30)
[2017-04-10] MEDS ORDERED: ACETAMINOPHEN 325 MG TAB PO ONE (05:30)
[2017-04-10 06:23] LABS: AUTOMATED NEUTROPHIL # 3.9 TH/MM3 (1.8-7.7); BASOPHIL # 0.1 TH/MM3 (0-0.2); BASOPHIL % 0.9 % (0.0-2.0); EOSINOPHIL # 0.1 TH/MM3 (0-0.4); EOSINOPHIL % 1.3 % (0.0-4.0); HEMATOCRIT 34.5 % (39.0-51.0); HEMO FLAGS DIFF FINAL; LYMPH % 28.4 % (9.0-44.0); LYMPHOCYTE # 1.8 TH/MM3 (1.0-4.8); MEAN CELL VOLUME 82.5 FL (80.0-100.0); MEAN CORPUSCULAR HEMOGLOBIN 29.1 PG (27.0-34.0); MEAN CORPUSCULAR HGB CONC 35.3 % (32.0-36.0); MONO % 7.2 % (0.0-8.0); NEUT % 62.2 % (16.0-70.0); PLATELET COUNT 178 TH/MM3 (150-450); RED BLOOD COUNT 4.18 MIL/MM3 (4.50-5.90); RED CELL DISTRIBUTION WIDTH 16.4 % (11.6-17.2); WHITE BLOOD COUNT 6.2 TH/MM3 (4.0-11.0)
[2017-04-10 06:53] LABS: ALT (GPT) 33 U/L (12-78); ANION GAP 8 MEQ/L (5-15); AST (GOT) 24 U/L (15-37); BICARBONATE 24.9 MEQ/L (21.0-32.0); BLOOD UREA NITROGEN 16 MG/DL (7-18); CHLORIDE 104 MEQ/L (98-107); GLOMERULAR FILTRATION RATE 64 ML/MIN (>89); SODIUM (NA) 137 MEQ/L (136-145)
[2017-04-10 06:56] LABS: ALKALINE PHOSPHATASE 43 U/L (45-117); HDL CHOLESTEROL 27.5 MG/DL (40.0-60.0); LDL CHOLESTEROL 81 MG/DL (0-99); TOTAL BILIRUBIN ADULT 0.8 MG/DL (0.2-1.0)
[2017-04-10 06:57] LABS: CREATINE KINASE 65 U/L (39-308)
[2017-04-10] MEDS: SODIUM CHLORIDE 0.9% FLUSH 10 ML FLUSH IV FLUSH SCH (07:36)
[2017-04-10] MEDS: DOCUSATE SODIUM 50 MG/SENNA 8.6 MG TAB PO SCH (07:37)
--- NOTE | 2017-04-10 08:06 | PD.CARD.PN ---
Subjective Subjective Remarks Feels "great". Denies right arm pain, dyspnea, angina, palpitations, dizziness. Objective Medications Item Value Date Time Aspirin 81 mg 04/10/17 0900 (Aspirin Chew) DAILY/PO 04/10/17 0736 Ticagrelor 90 mg 04/10/17 0900 (Brilinta) BID/PO 04/10/17 0736 Tirofiban/Sodium 250 ml @ 21.6 mls/hr 04/09/17 1730 Chloride [id number] 04/10/17 0505 Vital Signs / I&O Vital Signs Date Time Temp Pulse Resp B/P Pulse Ox O2 Delivery O2 Flow Rate FiO2 04/10/17 06:10 70 04/10/17 05:00 63 04/10/17 04:42 98.1 74 117/57 98 04/10/17 04:00 68 04/10/17 03:00 70 04/10/17 02:00 72 04/10/17 01:00 66 04/10/17 00:00 97.4 71 139/82 98 04/10/17 00:00 72 04/09/17 23:00 76 04/09/17 22:00 70 04/09/17 21:00 84 04/09/17 20:00 70 04/09/17 20:00 97.6 75 132/70 99 04/09/17 19:00 75 04/09/17 16:19 97.8 100 16 137/82 99 04/09/17 14:18 77 16 162/84 99 04/09/17 11:00 78 16 167/98 98 Room Air 04/09/17 09:35 99 Room Air 04/09/17 09:31 Room Air 04/09/17 09:13 97.8 75 20 170/95 98 I/O 04/09/17 04/09/17 04/09/17 04/10/17 04/10/17 04/10/17 06:59 14:59 22:59 06:59 14:59 22:59 Intake Total 440 ml 480 ml Output Total 1800 ml Balance 440 ml -1320 ml Intake Oral 240 ml 480 ml IV Total 200 ml Output Urine Total 1800 ml # Voids 2 # Bowel Movements 0 Physical Exam GENERAL: Well developed, well nourished. No acute distress. HEENT: Jugular venous pressure is normal. CHEST: Lungs clear to auscultation anteriorly. CARDIAC: Regular rate and rhythm without S3, S4, or murmur. ABDOMEN: Soft, nontender, no hepatosplenomegaly. Bowel sounds present. EXTREMITIES: No clubbing, cyanosis, or edema. Right radial region stable, good pulse, no hematoma. Laboratory Laboratory Tests Test 04/09/17 04/09/17 04/09/17 04/10/17 09:45 15:49 20:52 05:20 White Blood Count 5.7 TH/MM3 6.2 TH/MM3 Red Blood Count 4.51 MIL/MM3 4.18 MIL/MM3 Hemoglobin 12.9 GM/DL 12.2 GM/DL Hematocrit 38.0 % 34.5 % Mean Corpuscular Volume 84.2 FL 82.5 FL Mean Corpuscular Hemoglobin 28.5 PG 29.1 PG Mean Corpuscular Hemoglobin 33.9 % 35.3 % Concent Red Cell Distribution Width 16.3 % 16.4 % Platelet Count 191 TH/MM3 178 TH/MM3 Mean Platelet Volume 7.7 FL 7.9 FL Neutrophils (%) (Auto) 54.1 % 62.2 % Lymphocytes (%) (Auto) 34.9 % 28.4 % Monocytes (%) (Auto) 8.6 % 7.2 % Eosinophils (%) (Auto) 1.4 % 1.3 % Basophils (%) (Auto) 1.0 % 0.9 % Neutrophils # (Auto) 3.1 TH/MM3 3.9 TH/MM3 Lymphocytes # (Auto) 2.0 TH/MM3 1.8 TH/MM3 Monocytes # (Auto) 0.5 TH/MM3 0.4 TH/MM3 Eosinophils # (Auto) 0.1 TH/MM3 0.1 TH/MM3 Basophils # (Auto) 0.1 TH/MM3 0.1 TH/MM3 CBC Comment DIFF FINAL DIFF FINAL Differential Comment Prothrombin Time 10.3 SEC Prothromb Time International 0.9 RATIO Ratio Activated Partial 27.1 SEC Thromboplast Time Sodium Level 137 MEQ/L Potassium Level 4.1 MEQ/L Chloride Level 103 MEQ/L Carbon Dioxide Level 27.5 MEQ/L Anion Gap 7 MEQ/L Blood Urea Nitrogen 16 MG/DL Creatinine 1.33 MG/DL Estimat Glomerular Filtration 57 ML/MIN Rate Random Glucose 126 MG/DL Calcium Level 8.9 MG/DL Magnesium Level 2.2 MG/DL Total Bilirubin 0.7 MG/DL Aspartate Amino Transf 18 U/L (AST/SGOT) Alanine Aminotransferase 36 U/L (ALT/SGPT) Alkaline Phosphatase 53 U/L Total Creatine Kinase 111 U/L Creatine Kinase MB 5.9 NG/ML Troponin I LESS THAN 0.02 LESS THAN 0.02 LESS THAN 0.02 NG/ML NG/ML NG/ML Total Protein 7.7 GM/DL Albumin 4.0 GM/DL Test 04/10/17 05:23 Sodium Level 137 MEQ/L Potassium Level 4.0 MEQ/L Chloride Level 104 MEQ/L Carbon Dioxide Level 24.9 MEQ/L Anion Gap 8 MEQ/L Blood Urea Nitrogen 16 MG/DL Creatinine 1.20 MG/DL Estimat Glomerular Filtration 64 ML/MIN Rate Random Glucose 97 MG/DL Calcium Level 8.8 MG/DL Total Bilirubin 0.8 MG/DL Aspartate Amino Transf 24 U/L (AST/SGOT) Alanine Aminotransferase 33 U/L (ALT/SGPT) Alkaline Phosphatase 43 U/L Total Creatine Kinase 65 U/L Total Protein 6.9 GM/DL Albumin 3.7 GM/DL Triglycerides Level 180 MG/DL Cholesterol Level 144 MG/DL LDL Cholesterol 81 MG/DL HDL Cholesterol 27.5 MG/DL Cholesterol/HDL Ratio 5.23 RATIO Assessment and Plan Problem List: (1) CAD (coronary artery disease) Assessment and Plan: Stable overnight. No further CP s/p stent of mid left circumflex. Discussed cath findings at length with patient. He does have moderate residual disease and I stressed the importance of exercise, cholesterol lowering management in the [facility]. Renal indices stable. Right radial arteriotomy site stable. OK to discharge home today from a cardiac standpoint on statin, aspirin, Brilinta, 3-4 week f/u with Dr. Smith (2) Hyperlipidemia Assessment and Plan: Suboptimal LDL (81) and HDL. Rec initiate atorvastatin 20 mg qhs. Code Status full code Discussed Condition With patient at length Problem Qualifiers (1) CAD (coronary artery disease): Qualified Code: I25.110 - Coronary artery disease involving seneca coronary artery of seneca heart with unstable angina pectoris (2) Hyperlipidemia: Qualified Code: E78.2 - Mixed hyperlipidemia Mj Diallo MD Apr 10, 2017 08:06
[2017-04-10] MEDS ORDERED: ASPIRIN 81 MG CHEW TAB PO SCH (09:00)
[2017-04-10] MEDS ORDERED: TICAGRELOR 90 MG TAB PO SCH (09:00)
--- NOTE | 2017-04-10 10:19 | HHI.DS ---
Discharge Summary Admission Date Apr 09, 2017 at 11:36 Discharge Date: Apr 10, 2017 Admitting Diagnosis angina (1) Unstable angina ICD Code: I20.0 Diagnosis: Principal Procedures Heart catheterization Brief History - From Admission Written by Ehsan Walker, acting as scribe for Dr. Diaz on 04/09/17 at 13:02. Patient is a 51-year-old male with primary medical history of dyslipidemia, renal cell cancer who came into the hospital as recommended by Dr. Smith, hogshead press operator for further evaluation of his chest pain. Patient states that he's been having chest pain for 6 weeks or so now. He described chest pain is associated with shortness of breath, he feels that he cannot get enough air, he also feels that his heart rate is occasionally elevated due to disc, feels weak, feels fatigued. 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 Patient also states that the other night, he was chest Kennedy in bed but he feels that there is a pressure sitting on his chest, and he felt bad, states he is unable to describe the feeling that he gets the pressure. Also mentioned that he cannot sustain sexual activity because he gets out of breath and energy. He was seen by his primary care physician and was recommended to see a hogshead press operator, Dr. Smith. When he went to his office they didn't EKG on him and as he gets evaluated he was recommended to go to the hospital. Patient also states that for about 4-5 months he has been on and off having cold symptoms that he can get rid of. His primary care physician has been given him antibiotics but he feels that he is not getting rid of it. Patient states he was given nitroglycerin, he feels he has a full head but states that all his symptoms of chest pain has been relieved, and he is doing a lot better now. On exam, denies pain and discomfort. Denies SOB/ dyspnea. Denies chest pain, palpitations, dizziness. Denies fevers, chills, n/v/d. Denies dysuria. CBC/BMP: 04/10/17 0520 04/10/17 0523 Significant Findings Laboratory Tests Test 04/09/17 04/09/17 04/09/17 04/10/17 09:45 15:49 20:52 05:20 Hemoglobin 12.9 GM/DL 12.2 GM/DL (13.0-17.0) (13.0-17.0) Hematocrit 38.0 % 34.5 % (39.0-51.0) (39.0-51.0) Monocytes (%) (Auto) 8.6 % (0.0-8.0) Creatinine 1.33 MG/DL (0.60-1.30) Estimat Glomerular Filtration 57 ML/MIN (>89) Rate Random Glucose 126 MG/DL (74-106) Creatine Kinase MB 5.9 NG/ML (0.5-3.6) Troponin I LESS THAN 0.02 LESS THAN 0.02 LESS THAN 0.02 NG/ML NG/ML NG/ML (0.02-0.05) (0.02-0.05) (0.02-0.05) Red Blood Count 4.18 MIL/MM3 (4.50-5.90) Test 04/10/17 05:23 Estimat Glomerular Filtration 64 ML/MIN (>89) Rate Alkaline Phosphatase 43 U/L (45-117) Triglycerides Level 180 MG/DL (42-150) HDL Cholesterol 27.5 MG/DL (40.0-60.0) Hospital Course Mr. Calderón is a 51-year-old male. He was admitted secondary to persistent episodes of chest pressure and shortness of breath with exertion. He is a diesel engine mechanic apprentice and was having these episodes every time he exerted himself. Heart catheterization was performed and diffuse coronary artery disease was present. There is likely a strong genetic component to this as he has coronary artery disease and cardiac histories in both his father and mother's side of the family. One stent was placed. He has been cleared by cardiology for discharge to home. Patient is now symptom-free. Medically cleared for discharge today. He'll be on Brilinta. Pt Condition on Discharge: Stable Discharge Disposition: Discharge Home Discharge Time: <= 30 minutes Discharge Instructions DIET: Follow Instructions for: As Tolerated, No Restrictions Activities you can perform: Regular-No Restrictions Follow up Referrals: Cardiology - 3 Weeks with Forest Smith MD PCP Follow-up - 2 Weeks New Medications: Aspirin (Aspirin Low Strength) 81 Mg Chew 81 MG PO DAILY Blood Clot Prevention #30 EA Atorvastatin (Atorvastatin) 20 Mg Tab 20 MG PO HS Coronary Artery Disease #30 TAB Ticagrelor (Brilinta) 90 Mg Tab 90 MG PO BID Blood Clot Prevention #60 TAB Kenton Diaz MD Apr 10, 2017 10:19
[2017-04-10] MEDS ORDERED: BRIL90TA PO (10:21)
[2017-04-10] MEDS ORDERED: ASPI81CH25 PO (10:21)
[2017-04-10] MEDS ORDERED: ATOR20TA15 PO (10:21)
--- NOTE | 2017-04-10 14:41 | EKG ---
Date Performed: 04/09/2017 Time Performed: 09:30:13 PTAGE: 51 years EKG: Sinus rhythm NONSPECIFIC T-WAVE ABNORMALITY BORDERLINE ECG NO PREVIOUS TRACING DOCTOR: Belne Isabel Interpretating Date/Time 04/10/2017 14:39:19
[2017-04-10] MEDS ORDERED: ATORVASTATIN 20 MG TAB PO SCH (21:00)
== END 2017-04-10 10:45 | disposition home or self-care (01) | DRG 247 ==
LOC: NEPC 09:11 → NEDA 11:36 → HCIN 14:38
PROVIDERS: ADMIT Hospitalist; ATTEND Hospitalist
PROC: B2151ZZ Fluoroscopy of Left Heart using Low Osmolar Contrast (ICD-10-PCS; 2017-04-09)
PROC: B2111ZZ Fluoroscopy of Multiple Coronary Arteries using Low Osmolar Contrast (ICD-10-PCS; 2017-04-09)
PROC: 4A023N7 Measurement of Cardiac Sampling and Pressure, Left Heart, Percutaneous Approach (ICD-10-PCS; 2017-04-09)
PROC: 027034Z Dilation of Coronary Artery, One Artery with Drug-eluting Intraluminal Device, Percutaneous Approach (ICD-10-PCS; principal; 2017-04-09 13:45)
DX: I25.110 Atherosclerotic heart disease of native coronary artery with unstable angina pectoris (principal); E78.5 Hyperlipidemia, unspecified; N18.2 Chronic kidney disease, stage 2 (mild); N28.9 Disorder of kidney and ureter, unspecified; Z82.49 Family history of ischemic heart disease and other diseases of the circulatory system; Z85.528 Personal history of other malignant neoplasm of kidney; Z90.5 Acquired absence of kidney
CPT/HCPCS: 71010; 80053; 80061; 82550; 82552; 83735; 84484; 85002; 85025; 85610; 85730; 92928; 93005; 93458; 96374; 96375; C1725; C1769; C1874; C1887; C1893; J1644; J2250; J3010; J3246; J7030; Q9967